=== PATIENT | male | born 1940 | race Caucasian/White ===

== ENCOUNTER 2017-01-11 17:55 | Emergency (ER) | payer MEDICARE ==
[2017-01-11 17:58] VITALS: BP 135/67; PULSE 79; RESP 20; TEMP 97.7; O2SAT 96
[2017-01-11] MEDS ORDERED: AMLO5TAB2 PO (18:04)
[2017-01-11] MEDS ORDERED: HYDR25TA5 PO (18:04)
[2017-01-11] MEDS ORDERED: DOXA4TAB3 PO (18:04)
[2017-01-11] MEDS ORDERED: AVOD0.5C PO (18:04)
[2017-01-11] MEDS ORDERED: LISI40TA PO (18:04)
[2017-01-11] MEDS ORDERED: ALLO300T2 PO (18:04)
--- NOTE | 2017-01-11 18:27 | PD ---
HPI Chief Complaint: Edema Time Seen by Provider: 18:15 Travel History International Travel<30 days: No Contact w/Intl Traveler<30days: No Traveled to known affect area: No History of Present Illness HPI This patient complains of pain in his left calf and some swelling of the left leg. Duration is 2 days. Does play tennis but there is no specific injury to his leg. Symptoms severity is mild to moderate. No alleviating factors. He denies history of blood clot and takes no blood thinners. No fevers. PFSH Past Medical History Hypertension: Yes Medical other: Yes (BPH, HIGH URIC ACID) Social History Alcohol Use: Yes Tobacco Use: No Substance Use: No Allergies-Medications (Allergen,Severity, Reaction): Coded Allergies: No Known Allergies (Verified , 01/11/17) Reported Meds & Prescriptions Reported Meds & Active Scripts Active Reported Avodart (Dutasteride) 0.5 Mg Cap 0.5 Mg PO DAILY Lisinopril 40 Mg Tab 40 Mg PO DAILY Hydrochlorothiazide 25 Mg Tab 25 Mg PO DAILY Doxazosin (Doxazosin Mesylate) 4 Mg Tab 4 Mg PO BID Amlodipine (Amlodipine Besylate) 5 Mg Tab 5 Mg PO BID Allopurinol 300 Mg Tab 300 Mg PO DAILY Review of Systems General / Constitutional: No: Fever Eyes: No: Visual changes HENT: No: Headaches Cardiovascular: No: Chest Pain or Discomfort Respiratory: No: Shortness of Breath Gastrointestinal: No: Abdominal Pain Genitourinary: No: Dysuria Musculoskeletal: Positive: Cramping, Edema, Pain Skin: No Rash Neurologic: No: Weakness Psychiatric: No: Depression Endocrine: No: Polydipsia Hematologic/Lymphatic: No: Easy Bruising Physical Exam Narrative GENERAL: Well-nourished, well-developed patient in no apparent distress. SKIN: Focused skin assessment reveals no rash and nodules. Skin is Warm and dry. HEAD: Atraumatic. Normocephalic. EYES: Pupils equal and round. No scleral icterus. No injection or drainage. ENT: No nasal bleeding or discharge. Mucous membranes pink and moist. NECK: Trachea midline. No JVD. CARDIOVASCULAR: Regular rate and rhythm. No murmur appreciated. RESPIRATORY: No accessory muscle use. Clear to auscultation. Breath sounds equal bilaterally. GASTROINTESTINAL: Abdomen soft, non-tender, nondistended. Hepatic and splenic margins not palpable. MUSCULOSKELETAL: No obvious deformities. No clubbing. No cyanosis. He does have some mild swelling of the left calf and edema of the lower leg. There is no erythema or warmth. He has mild calf tenderness. NEUROLOGICAL: Awake and alert. No obvious cranial nerve deficits. Motor grossly within normal limits. Normal speech. PSYCHIATRIC: Appropriate mood and affect; insight and judgment normal. Data Data Last Documented VS Vital Signs Date Time Temp Pulse Resp B/P Pulse Ox O2 Delivery O2 Flow Rate FiO2 01/11/17 17:58 97.7 79 20 135/67 96 Orders Iv Access Insert/Monitor (01/11/17 18:22) Complete Blood Count With Diff (01/11/17 18:22) Prothrombin Time / Inr (Pt) (01/11/17 18:22) Act Partial Throm Time (Ptt) (01/11/17 18:22) Us Leg Venous Doppler (01/11/17 ) MDM Medical Decision Making Medical Screen Exam Complete: Yes Emergency Medical Condition: Yes Medical Record Reviewed: Yes Differential Diagnosis DVT, calf strain, musculoskeletal pain Narrative Course I have reviewed the patient's electronic medical record. IV placed CBC and Coagulation studies are ordered I have ordered ultrasound of the left leg to evaluate for DVT. Case will be checked out to Dr. Andrews to assist with disposition after ultrasound complete. Emerson Mathews MD Jan 11, 2017 18:27
[2017-01-11 18:50] LABS: BASOPHIL # 0.4 TH/MM3 (0-0.2); BASOPHIL % 3.3 % (0.0-2.0); EOSINOPHIL # 0.3 TH/MM3 (0-0.4); EOSINOPHIL % 2.5 % (0.0-4.0); HEMATOCRIT 39.3 % (39.0-51.0); HEMO FLAGS DIFF FINAL; LYMPH % 21.6 % (9.0-44.0); LYMPHOCYTE # 2.6 TH/MM3 (1.0-4.8); MEAN CELL VOLUME 92.6 FL (80.0-100.0); MEAN CORPUSCULAR HEMOGLOBIN 31.9 PG (27.0-34.0); MEAN CORPUSCULAR HGB CONC 34.5 % (32.0-36.0); MONO % 6.6 % (0.0-8.0); PLATELET COUNT 182 TH/MM3 (150-450); RED BLOOD COUNT 4.24 MIL/MM3 (4.50-5.90); RED CELL DISTRIBUTION WIDTH 12.4 % (11.6-17.2); WHITE BLOOD COUNT 12.1 TH/MM3 (4.0-11.0)
[2017-01-11 19:04] LABS: APTT (PATIENT) 27.9 SEC (24.3-30.1); PROTHROMBIN TIME - PATIENT 10.7 SEC (9.8-11.6)
--- NOTE | 2017-01-11 20:04 | PD ---
Physical Exam Time Seen by Provider: 20:[address] Mathews left this patient with me to check the results of the ultrasound and make a disposition. Data Data Last Documented VS Vital Signs Date Time Temp Pulse Resp B/P Pulse Ox O2 Delivery O2 Flow Rate FiO2 01/11/17 17:58 97.7 79 20 135/67 96 Orders Iv Access Insert/Monitor (01/11/17 18:22) Complete Blood Count With Diff (01/11/17 18:22) Prothrombin Time / Inr (Pt) (01/11/17 18:22) Act Partial Throm Time (Ptt) (01/11/17 18:22) Us Leg Venous Doppler (01/11/17 ) Rivaroxaban (Xarelto) (01/11/17 21:15) Labs Laboratory Tests Test 01/11/17 18:41 White Blood Count 12.1 TH/MM3 Red Blood Count 4.24 MIL/MM3 Hemoglobin 13.5 GM/DL Hematocrit 39.3 % Mean Corpuscular Volume 92.6 FL Mean Corpuscular Hemoglobin 31.9 PG Mean Corpuscular Hemoglobin 34.5 % Concent Red Cell Distribution Width 12.4 % Platelet Count 182 TH/MM3 Mean Platelet Volume 7.7 FL Neutrophils (%) (Auto) 66.0 % Lymphocytes (%) (Auto) 21.6 % Monocytes (%) (Auto) 6.6 % Eosinophils (%) (Auto) 2.5 % Basophils (%) (Auto) 3.3 % Neutrophils # (Auto) 8.0 TH/MM3 Lymphocytes # (Auto) 2.6 TH/MM3 Monocytes # (Auto) 0.8 TH/MM3 Eosinophils # (Auto) 0.3 TH/MM3 Basophils # (Auto) 0.4 TH/MM3 CBC Comment DIFF FINAL Differential Comment Prothrombin Time 10.7 SEC Prothromb Time International 1.0 RATIO Ratio Activated Partial 27.9 SEC Thromboplast Time [facility] Medical Record Reviewed: Yes Supervised Visit with DMITRI: No Interpretation(s) The ultrasound shows extensive left lower extremity DVT extending from superficial femoral vein through the popliteal vein, popliteal vein and posterior tibial vein in the mid calf. Differential Diagnosis DVT, pulmonary embolus, popliteal cyst rupture, muscle strain, tendon rupture calf Narrative Course The patient has deep vein thrombosis. There is no evidence that he has a pulmonary embolus. He denies any chest pain, shortness of breath, syncopal or near syncopal spells, fever or tachycardia. I discussed the patient with Dr. Flores and the patient will be given Xarelto 20 mg here and 20 mg daily and he will follow-up tomorrow at [facility] between - tomorrow. Diagnosis Primary Impression: Left leg DVT Additional Instruction: Dr. Flores states he has some samples of Xarelto but he cannot get them until Saturday. Follow-up tomorrow between at the [facility] and then again on Saturday to get the free samples. We'll Xarelto was taken one tablet daily. Scripts Rivaroxaban (Xarelto)20 Mg Tab20 Mg PO DAILY #7 TAB Ref 0 Prov:Po Andrews MD 01/11/17 Disposition: 01 DISCHARGE HOME Condition: Stable Po Andrews MD Jan 11, 2017 20:04
--- NOTE | 2017-01-11 20:25 | RADRPT ---
EXAM DATE/TIME: 01/11/2017 19:41 [place] COMPARISON: No previous studies available for comparison. INDICATIONS : Left leg swelling and pain. MEDICAL HISTORY : Benign prostatic hyperplasia, (BPH) Hypertension. SURGICAL HISTORY : None. ENCOUNTER: Initial ACUITY: 2 day PAIN SCORE: 3/10 LOCATION: Left leg. TECHNIQUE: Venous ultrasound of the leg was performed from the inguinal ligament to the proximal calf. [place] e, color Doppler and spectral tracing, compression and augmentation techniques were used. FINDINGS: There is occlusive thrombus seen extending from the superficial femoral vein proximally to the net c developer ior tibial veins in the midcalf. Several patent collateral vessels are noted. CONCLUSION: 1. Extensive left lower extremity deep venous thrombosis extending from the superficial femoral vein through the popliteal vein, peroneal vein and posterior tibial vein in the mid calf. El Saxena MD on January 11, 2017 at 20:21 Board Certified Radiologist. This report was verified electronically.
[2017-01-11] MEDS ORDERED: XARE20TA PO (21:08)
[2017-01-11] MEDS ORDERED: RIVAROXABAN 20 MG TAB PO ONE (21:15)
[2017-01-11 21:35] VITALS: BP 127/64
== END 2017-01-11 21:38 | disposition home or self-care (01) ==
LOC: PHED 17:55
DX: I82.412 Acute embolism and thrombosis of left femoral vein (principal); I82.432 Acute embolism and thrombosis of left popliteal vein; I82.442 Acute embolism and thrombosis of left tibial vein; I10 Essential (primary) hypertension
CPT/HCPCS: 85025; 85610; 85730; 93971